=== PATIENT | male | born 1990 ===

== ENCOUNTER 2017-12-11 05:47 | Day surgery (SDC) | payer OTHER ==
[2017-12-11] MEDS: METHYLENE BLUE 1% 10 ML INJ IV
[2017-12-11] MEDS: BUPIVACAINE 0.5% 30 ML VIAL INJ
[2017-12-11] MEDS ORDERED: SOD CHLORIDE 0.9% 1,000 ML IV (06:00)
[2017-12-11] MEDS ORDERED: CEFAZOLIN 2 GM/50 ML (PMX) 50 ML IVPB (06:00)
[2017-12-11] MEDS ORDERED: ROCURONIUM 50 MG INJ (07:52)
[2017-12-11] MEDS ORDERED: MIDAZOLAM 1 MG/ML 2 ML INJ (07:52)
[2017-12-11] MEDS ORDERED: FENTAnyl 50 MCG/ML VIAL ×3 (07:52→09:22)
[2017-12-11] MEDS ORDERED: NEOSTIGMINE 3 MG/3 ML SYRINGE (07:52)
[2017-12-11] MEDS ORDERED: CEFAZOLIN 1 GM INJ (07:52)
[2017-12-11] MEDS ORDERED: ONDANSETRON 4 MG INJ (07:52)
[2017-12-11] MEDS ORDERED: GLYCOPYRROLATE 0.4 MG INJ (07:52)
[2017-12-11] MEDS ORDERED: PROPOFOL 20 ML (07:52)
[2017-12-11] MEDS ORDERED: DEXAMETHASONE 4 MG/ML 1 ML INJ (07:52)
[2017-12-11] MEDS ORDERED: BUPIVACAINE 0.5% (SDV) 30 ML INJ (08:13)
[2017-12-11] MEDS ORDERED: METHYLENE BLUE 1% 10 ML INJ (08:52)
[2017-12-11] MEDS ORDERED: KETOROLAC 30 MG INJ (09:16)
[2017-12-11] MEDS ORDERED: LABETALOL HCL 20MG INJ IV (10:00)
[2017-12-11] MEDS ORDERED: ALBUTEROL 0.083% (NEB) 2.5 MG/3 ML AMP HHN (10:00)
[2017-12-11] MEDS ORDERED: ONDANSETRON 4 MG INJ IV (10:00)
[2017-12-11] MEDS ORDERED: MEPERIDINE 25 MG INJ IV (10:00)
[2017-12-11] MEDS ORDERED: MIDAZOLAM 1 MG/ML 2 ML INJ IV (10:00)
[2017-12-11] MEDS ORDERED: FENTAnyl 50 MCG/ML VIAL IV ×3 (10:00)
[2017-12-11] MEDS ORDERED: DIPHENHYDRAMINE 50 MG INJ IV (10:00)
[2017-12-11] MEDS ORDERED: TRIMETHOBENZAMIDE 100 MG/ML VIAL IM (10:00)
[2017-12-11] MEDS ORDERED: IPRATROPIUM (NEB) 0.5 MG/2.5 ML AMP HHN (10:00)
[2017-12-11] MEDS ORDERED: OXYCODONE/ACETAMINOPHEN (5/325) TAB PO ×2 (10:00)
[2017-12-11] MEDS ORDERED: hydrALAzine 20 MG INJ IV (10:00)
[2017-12-11] MEDS ORDERED: HYDROmorphONE 1 MG/5 ML IV SYRINGE IV ×3 (10:00)
[2017-12-11] MEDS ORDERED: EPHEDrine SULFATE 50 MG/5 ML SYG IV (10:00)
== END 2017-12-11 14:10 | disposition home or self-care (01) ==
LOC: SDS 05:47
DX: L05.91 Pilonidal cyst without abscess (principal); Z87.891 Personal history of nicotine dependence
CPT/HCPCS: 11772; 88304